=== PATIENT | male | born 1965 | race Caucasian/White ===

== ENCOUNTER 2018-04-10 11:07 | Emergency (ER) | payer MEDICARE, MEDICAID ==
[~2018-04-10] VITALS: Ht 160 cm; Wt 81.8 kg
[~2018-04-10 11:07] MED LIST: CLIN300C85 PO; CYCL-394 PO; NO HOME MEDS
[2018-04-10] MEDS ORDERED: TETanus/Pertussis (Acell)/Diphther VAC/PF (Tdap-Adult) 0.5ml syringe IM ONE (11:20)
[2018-04-10 11:21] VITALS: BP 156/97
--- NOTE | 2018-04-10 11:50 | NUR ---
PT REFUSES THE TETANUS SHOT
== END 2018-04-10 12:12 ==
LOC: ER 11:07
DX: S01.01XA Laceration without foreign body of scalp, initial encounter (principal); S30.1XXA Contusion of abdominal wall, initial encounter; S70.02XA Contusion of left hip, initial encounter; F15.90 Other stimulant use, unspecified, uncomplicated; F17.200 Nicotine dependence, unspecified, uncomplicated; Z79.899 Other long term (current) drug therapy; W45.8XXA Other foreign body or object entering through skin, initial encounter; Y93.89 Activity, other specified; Y92.098 Other place in other non-institutional residence as the place of occurrence of the external cause; Y99.9 Unspecified external cause status
CPT/HCPCS: 12001; 90715; 99283

== ENCOUNTER 2018-04-16 14:11 | Emergency (ER) | payer MEDICARE, MEDICAID ==
[~2018-04-16] VITALS: Ht 165.1 cm; Wt 81.0 kg
[2018-04-16 14:13] VITALS: BP 127/73
[2018-04-16] MEDS ORDERED: TETanus/Pertussis (Acell)/Diphther VAC/PF (Tdap-Adult) 0.5ml syringe IM ONE (14:25)
--- NOTE | 2018-04-16 15:08 | NUR ---
DR SANTOS AT BEDSIDE
== END 2018-04-16 15:47 ==
LOC: EEVIPCON 14:11 → ER 14:11
DX: S70.01XA Contusion of right hip, initial encounter (principal); S00.81XA Abrasion of other part of head, initial encounter; S70.212A Abrasion, left hip, initial encounter; S00.01XA Abrasion of scalp, initial encounter; F17.200 Nicotine dependence, unspecified, uncomplicated; F15.90 Other stimulant use, unspecified, uncomplicated; Z79.899 Other long term (current) drug therapy; W01.0XXA Fall on same level from slipping, tripping and stumbling without subsequent striking against object, initial encounter; Y93.89 Activity, other specified; Y92.89 Other specified places as the place of occurrence of the external cause; Y99.8 Other external cause status
CPT/HCPCS: 70450; 72125; 90471; 90715; 99284